=== PATIENT | male | born 1995 | race Caucasian/White ===

== ENCOUNTER 2018-06-04 17:07 | Emergency (ER) | payer OTHER ==
--- NOTE | 2018-06-04 17:14 | EDM.PDOC ---
ED HPI GENERAL MEDICAL PROBLEM - General Chief Complaint: Upper Extremity Injury/Pain Stated Complaint: RIGHT PINKY FINGER INJURY Time Seen by Provider: 06/04/18 17:13 - History of Present Illness INITIAL COMMENTS - FREE TEXT/NARRATIVE: 23-year-old male presents emergency room with right pinky injury The patient was frustrated any soreness this down on his knee and injured the end of his pinky finger. He is not exactly sure how he did it but he did it. He cannot flex the end of his finger and he's developed some bruising to the area. This occurred shortly before arrival. The patient is not a threat to himself or anyone else sees here for a family and is upset over the situation this was not done with any intent to hurt himself. Right 5-Little finger Pain Score (Numeric/FACES): 4 - Related Data Allergies Allergy/AdvReac Type Severity Reaction Status Date / Time No Known Allergies Allergy Verified 06/04/18 17:14 Home Meds: Home Meds . [No Known Home Meds] 06/04/18 [History] Review of Systems - Review of Systems Review Of Systems: See Below Constitutional: Reports: No Symptoms Respiratory: Reports: No Symptoms Cardiovascular: Reports: No Symptoms GI/Abdominal: Reports: No Symptoms ED EXAM, GENERAL - Physical Exam Exam: See Below Exam Limited By: No Limitations General Appearance: Alert, No Apparent Distress Respiratory/Chest: No Respiratory Distress, Lungs Clear, Normal Breath Sounds Cardiovascular: Regular Rate, Rhythm, No Edema, No Murmur Back Exam: No: CVA Tenderness (L) Neurological: Other (Examination hand shows normal neurovascular status in all digits tendon function is normal in all digits except for the extension of the distal interphalangeal joint of fifth finger of the right hand. He has some ecchymosis over the top of this.) Course - Vital Signs Last Recorded V/S: Last Vital Signs Temp 36.9 C 06/04/18 17:16 Pulse 61 06/04/18 17:16 Resp BP 109/77 06/04/18 17:16 Pulse Ox 100 06/04/18 17:16 - Orders/Labs/Meds Orders: Active Orders 24 hr Category Date Time Status Fingers Fifth Digit Rt F9 [CR] Stat Exams 06/04/18 17:18 Taken - Re-Assessments/Exams Free Text/Narrative Re-Assessment/Exam: 06/04/18 18:20 X-ray examination of the finger shows a dorsal fracture of the most proximal dorsal articulation of the distal phalanx. Case discussed with Dr. Solorio patient will be placed in a cockup digit splint. The patient is heading home on Thursday in [place] he can follow-up with a hand surgeon orthopedics at home early next week. Departure - Departure Time of Disposition: 18:21 Disposition: Home, Self-Care 01 Clinical Impression: Closed fracture of phalanx of little finger - Discharge Information Instructions: Finger Fracture, [id number] Referrals: PCP,Not In Area [Primary Care Provider] - Forms: ED Department Discharge Additional Instructions: Return to the emergency room with any questions problems worsening symptoms. Follow-up with a hand surgeon or orthopedic surgeon when you get home, early this next week. Wear the splint at all times if you need to loosen it that is okay. Ibuprofen as needed for discomfort. Keep your hand and finger elevated as much as you can tolerate. Ice over the top of the finger may be beneficial to limit the swelling as well. - My Orders Last 24 Hours: My Active Orders 06/04/18 17:18 Fingers Fifth Digit Rt F9 [CR] Stat - Assessment/Plan Last 24 Hours: My Active Orders 06/04/18 17:18 Fingers Fifth Digit Rt F9 [CR] Stat
--- NOTE | 2018-06-05 14:32 | CR ---
Right fifth finger: Four views of the right fifth finger were obtained. Comparison: No previous study. Displaced avulsion fracture is identified within the posterior base of the distal phalanx of the right fifth finger. Soft tissue swelling is noted. No additional fracture or other abnormality is seen. Impression: 1. Avulsion fracture as noted above. Consider orthopedic referral. Diagnostic code #3
== END 2018-06-04 18:32 | disposition home or self-care (01) ==
LOC: JD.ED 17:07
DX: S62.636A Displaced fracture of distal phalanx of right little finger, initial encounter for closed fracture (principal); X58.XXXA Exposure to other specified factors, initial encounter
CPT/HCPCS: 73140-26-F9; 73140-F9; 99282; 99283